=== PATIENT | male | born 2000 | race Caucasian/White ===

== ENCOUNTER 2024-05-27 13:56 | Emergency (ER) | payer OTHER ==
[~2024-05-27] VITALS: Ht 177.8 cm; Wt 65.0 kg
[~2024-05-27 13:56] MED LIST: OLAN5TAB6 MT
[2024-05-27 14:03] VITALS: O2SAT 98
[2024-05-27] MEDS: DIPHENHYDRAMINE 50MG/ML VIAL IM PRN (15:00)
[2024-05-27] MEDS: HALOPERIDOL LACTATE 5MG/ML VIAL IM ONE (15:00)
[2024-05-27 15:49] LABS: BASOPHILS % 0.4 % (0.0-2.0); CHLORIDE 108 mEq/L (98-107); HEMATOCRIT. 41.7 % (42.0-52.0); HEMOGLOBIN. 14.3 g/dL (14.0-18.0); LYMPHOCYTES % 15.1 % (20.0-50.0); MEAN CORPUSCULAR HEMOGLOBIN 30.7 pg (28.0-32.0); MEAN CORPUSCULAR HGB CONC 34.3 g/dL (31.0-37.0); MEAN CORPUSCULAR VOLUME 89.6 fL (80.0-94.0); MEAN PLATELET VOLUME 10.3 fl (7.4-10.4); MONOCYTES % 8.1 % (2.0-8.0); NEUTROPHILS % 76.4 % (40.0-76.0); PLATELET 155 x1000/uL (130-400); POTASSIUM 3.3 mEq/L (3.5-5.1); RED BLOOD CELL COUNT 4.66 mill/uL (4.7-6.1); RED CELL DISTRIBUTION WIDTH 14.5 % (11.6-14.6); SODIUM 141 mEq/L (136-145); WHITE BLOOD COUNT 9.8 x1000/uL (4.5-11.0)
[2024-05-27 15:50] LABS: CARBON DIOXIDE 23 mEq/L (21-32)
[2024-05-27 15:51] LABS: CALCIUM 9.7 mg/dL (8.7-10.4)
[2024-05-27 15:55] LABS: CREATININE 0.7 mg/dL (0.6-1.3); GLUCOSE 112 mg/dL (70-105)
[2024-05-27 15:56] LABS: ETHANOL BLOOD < 10 mg/dL (<10); UREA NITROGEN BLOOD 12 mg/dL (9-23)
[2024-05-27 15:57] LABS: ACETAMINOPHEN < 2 ug/mL (10-30)
[2024-05-27 19:23] LABS: *AMPHETAMINES SCREEN URINE PRESUMPTIVE POSITIVE (NEGATIVE); *BARBITURATES SCREEN URINE NEGATIVE (NEGATIVE); *BENZODIAZEPINES SCREEN URINE NEGATIVE (NEGATIVE); *COCAINE SCREEN URINE NEGATIVE (NEGATIVE); CANNABINOID URINE SCREEN PRESUMPTIVE POSITIVE (NEGATIVE); ECSTASY MDMA SCREEN URINE CONF.TEST INDICATED (NEGATIVE); METHADONE URINE SCREEN NEGATIVE (NEGATIVE); OPIATES URINE SCREEN NEGATIVE (NEGATIVE); PHENCYCLIDINE URINE SCREEN NEGATIVE (NEGATIVE)
[2024-05-27 20:44] LABS: CLARITY URINE CLEAR (CLEAR); COLOR URINE DARK YELLOW (YELLOW); GLUCOSE URINE NEGATIVE (NEGATIVE); KETONES URINE 1+ (NEGATIVE); LEUKOCYTE ESTERASE URINE TRACE (NEGATIVE); NITRITE URINE NEGATIVE (NEGATIVE); OCCULT BLOOD URINE NEGATIVE (NEGATIVE); PROTEIN URINE 1+ (NEGATIVE); SPECIFIC GRAVITY URINE 1.032 (1.005-1.030)
[2024-05-27 21:01] LABS: BACTERIA URINE NONE SEEN; RBC URINE NONE SEEN /hpf (0-2); SQUAMOUS EPITHELIAL CELL URINE RARE /lpf (RARE/1+)
[2024-05-27 21:02] LABS: MUCUS URINE 2+ /lpf (NONE/TRACE)
[2024-05-28] MEDS ORDERED: DIPHENHYDRAMINE 50MG CAPSULE PO ONE (01:15)
[2024-05-28] MEDS: DIPHENHYDRAMINE 25MG CAPSULE PO NR (02:00)
[2024-05-28 09:36] VITALS: BP 118/69; PULSE 71; RESP 18; TEMP 36.7; O2SAT 98
== END 2024-05-28 10:14 | disposition home or self-care (01) ==
LOC: ER 13:56
DX: R45.851 Suicidal ideations (principal); F15.10 Other stimulant abuse, uncomplicated; F12.10 Cannabis abuse, uncomplicated; Z20.822 Contact with and (suspected) exposure to COVID-19
CPT/HCPCS: 80305; 80048; 81003; 80307; 80329; 80320; 85025; 36415; 96372; 99285; 87426; J1200; J1630; Z7610 ×5; Q0163; A4606; G0480